=== PATIENT | male | born 2000 | race Caucasian/White ===

== ENCOUNTER 2022-09-09 23:30 | Emergency (ER) | payer SELFPAY ==
[~2022-09-09] VITALS: Ht 167.6 cm; Wt 77.0 kg
[2022-09-09] MEDS ORDERED: BACTRIM DS1 TAB PO (23:47)
[2022-09-10 00:28] VITALS: BP 108/68
== END 2022-09-10 00:33 | disposition home or self-care (01) | DRG 603 ==
LOC: ED 23:30
DX: L03.116 Cellulitis of left lower limb (principal)